=== PATIENT | female | born 1935 | race Caucasian/White ===

== ENCOUNTER 2017-11-18 14:26 | Inpatient (IN) | payer MEDICARE, OTHER ==
[2017-11-18 15:02] LABS: AADO2 Arterial 40.7 mmHg (7.0-24.0); Allen Test ACCEPTAB; Arterial Base Excess 0.4 mmol/L (-3.0-3); Arterial Blood Gas Oxygen Sat 93.6 mmHG (95.0-100.0); Arterial COHb 0.3 % (0.0-3.0); Arterial HCO3 23.5 mmol/L (22.0-26.0); Arterial MetHb 0.3 % (0.0-1.5); Arterial Total Hemglobin 11.5 g/dl (12.0-18.0); Arterial pCO2 33.1 mmhg (35-45); MODE ROOM AIR; Site Right Brachial
[2017-11-18 15:07] LABS: ADD MAN DIFF? NO
[2017-11-18 15:08] LABS: WHITE BLOOD COUNT 4.1 10^3/ul (4.8-10.8)
[2017-11-18 15:08] LABS: BASOPHILS % 0.5 % (0.0-2.0); EOSINOPHILS % 0.2 % (0.0-7.0); HEMATOCRIT 34.6 % (37.0-47.0); LYMPHOCYTES # 0.8 10^3/ul (0.8-2.9); LYMPHOCYTES % 18.2 % (15.0-51.0); MEAN CORPUSCULAR HEMOGLOBIN 28.5 pg (29.0-33.0); MEAN CORPUSCULAR HGB CONC 31.8 g/dl (32.0-37.0); MEAN CORPUSCULAR VOLUME 89.6 fl (82.0-101.0); MEAN PLATELET VOLUME 9.7 fl (7.4-10.4); MONOCYTE # 0.3 10^3/ul (0.3-0.9); MONOCYTES % 6.3 % (0.0-11.0); NEUTROPHIL # 3.1 10^3/ul (1.6-7.5); NEUTROPHILS % 74.3 % (39.0-77.0); PLATELET COUNT 331 10^3/UL (140-415); RED BLOOD COUNT 3.86 10^6/ul (4.20-5.40)
[2017-11-18 15:19] LABS: ADD UMIC YES; UR AMORPHOUS CRYSTAL MANY /HPF (NONE SEEN); UR ASCORBIC ACID NEGATIVE (NEGATIVE); UR BACTERIA FEW /HPF (NONE SEEN); UR BILIRUBIN (Dip) NEGATIVE (NEGATIVE); UR BLOOD (Dip) 2+ mg/dL (NEGATIVE); UR CLARITY CLOUDY (CLEAR); UR COLOR YELLOW (YELLOW); UR GLUCOSE (Dip) NEGATIVE (NEGATIVE); UR KETONES (Dip) TRACE mg/dL (NEGATIVE); UR LEUKOCYTE ESTERASE (Dip) 3+ Leu/ul (NEGATIVE); UR MUCUS FEW /HPF (NONE SEEN); UR NITRITE (Dip) POSITIVE (NEGATIVE); UR RBC 41 /HPF (0-5); UR SPECIFIC GRAVITY (Dip) 1.016 (1.003-1.030); UR TOTAL PROTEIN (Dip) 1+ mg/dl (NEGATIVE); UR UROBILINOGEN (Dip) 2+ mg/dL (NEGATIVE); UR WBC > 182 /HPF (0-5)
[2017-11-18 15:28] LABS: INR 1.13; PROTIME 14.7 Sec (11.9-14.9); PT RATIO 1.1
[2017-11-18 15:29] LABS: PARTIAL THROMBOPLASTIN TIME 32.4 Sec (25.0-35.0)
[2017-11-18 15:38] LABS: ALANINE AMINOTRANSFERASE 15 IU/L (13-69); ALBUMIN 3.8 g/dl (3.3-4.9); ALBUMIN/GLOBULIN RATIO 1.26; ALKALINE PHOSPHATASE 96 IU/L (42-121); AMYLASE 42 U/L (11-123); ANION GAP 16 (8-16); ASPARTATE AMINO TRANSFERASE 25 IU/L (15-46); BILIRUBIN,INDIRECT 0.3 mg/dl (0-1.1); BILIRUBIN,TOTAL 0.3 mg/dl (0.2-1.3); BLOOD UREA NITROGEN 16 mg/dl (7-20); CALCIUM 8.8 mg/dl (8.4-10.2); CARBON DIOXIDE 26 mmol/L (21-31); CHLORIDE 107 mmol/L (97-110); CREATININE 0.54 mg/dl (0.44-1.00); GLUCOSE 158 mg/dl (70-220); LIPASE 24 U/L (23-300); POTASSIUM 3.6 mmol/L (3.5-5.1); SODIUM 145 mmol/L (135-144); TOTAL PROTEIN 6.8 g/dl (6.1-8.1)
[2017-11-18 15:44] LABS: LACTIC ACID 3.8 mmol/L (0.5-2.0)
[2017-11-18 15:49] LABS: B-TYPE NATRIURETIC PEPTIDE 717 PG/ML (0-450)
[2017-11-18 15:50] LABS: TROPONIN-I < 0.012 ng/ml (0.00-0.12)
[2017-11-18] MEDS: VANCOMYCIN 1 GM (PMX) 250 ML IVPB (16:00)
[2017-11-18] MEDS: SODIUM CHLORIDE 0.9% 1L BAG IV* (16:06)
[2017-11-18] MEDS: CEFEPIME 2GM/50 ML (PMX) 50 ML IVPB (16:06)
[2017-11-18] MEDS: LORAZEPAM 2 MG INJ IV (16:28)
[2017-11-18] MEDS ORDERED: ACETAMINOPHEN 325 MG TAB PO ×2 (16:30→18:30)
[2017-11-18] MEDS ORDERED: ONDANSETRON 4 MG INJ IV ×2 (16:30→18:30)
[2017-11-18 16:41] LABS: LACTIC ACID 1.8 mmol/L (0.5-2.0)
[2017-11-18] MEDS ORDERED: BISACODYL (EC) 5 MG TAB PO (18:30)
[2017-11-18] MEDS ORDERED: DOCUSATE SODIUM 100 MG CAP PO (18:30)
[2017-11-18] MEDS ORDERED: morphine 2 MG INJ IV (18:30)
[2017-11-18] MEDS ORDERED: NACL 0.9% 3 ML SYG IV (18:30)
[2017-11-18] MEDS ORDERED: HYDROCODONE/APAP (5/325) TAB PO (18:30)
[2017-11-18] MEDS ORDERED: MAGNESIUM HYDROXIDE 30ML CUP PO (18:30)
[2017-11-18] MEDS: D5W-0.45 NACL + KCL 20 MEQ 1,000 ML IV (18:38)
[2017-11-19] MEDS: CEFTRIAXONE 1 GM/50 ML (PMX) 50 ML IVPB (06:13)
[2017-11-19 07:45] LABS: ADD MAN DIFF? NO
[2017-11-19 07:49] LABS: BASOPHILS % 0.7 % (0.0-2.0); EOSINOPHILS % 0.9 % (0.0-7.0); HEMOGLOBIN 10.2 g/dl (12.0-16.0); LYMPHOCYTES # 1.1 10^3/ul (0.8-2.9); LYMPHOCYTES % 25.7 % (15.0-51.0); MEAN CORPUSCULAR HEMOGLOBIN 29.1 pg (29.0-33.0); MEAN CORPUSCULAR HGB CONC 32.9 g/dl (32.0-37.0); MEAN CORPUSCULAR VOLUME 88.6 fl (82.0-101.0); MEAN PLATELET VOLUME 9.6 fl (7.4-10.4); MONOCYTE # 0.3 10^3/ul (0.3-0.9); MONOCYTES % 7.7 % (0.0-11.0); NEUTROPHIL # 2.8 10^3/ul (1.6-7.5); NEUTROPHILS % 64.8 % (39.0-77.0); PLATELET COUNT 325 10^3/UL (140-415); RED CELL DISTRIBUTION WIDTH 13.2 % (11.5-14.5)
[2017-11-19 07:49] LABS: WHITE BLOOD COUNT 4.3 10^3/ul (4.8-10.8)
[2017-11-19 08:06] LABS: ANION GAP 14 (8-16); BLOOD UREA NITROGEN 9 mg/dl (7-20); CALCIUM 8.3 mg/dl (8.4-10.2); CARBON DIOXIDE 26 mmol/L (21-31); CHLORIDE 106 mmol/L (97-110); CREATININE 0.45 mg/dl (0.44-1.00); GLUCOSE 82 mg/dl (70-220); MAGNESIUM 1.9 mg/dl (1.7-2.5); PHOSPHORUS 3.3 mg/dl (2.5-4.9); POTASSIUM 3.3 mmol/L (3.5-5.1); SODIUM 143 mmol/L (135-144)
[2017-11-19] MEDS: LORAZEPAM 2 MG INJ IV ×2 (10:04→15:37)
[2017-11-19] MEDS: D5W-0.45 NACL + KCL 20 MEQ 1,000 ML IV (11:12)
[2017-11-19] MEDS: POTASSIUM CHLORIDE 100 ML IVPB (16:24)
[2017-11-19] MEDS ORDERED: HALOPERIDOL 5 MG INJ IV (16:30)
[2017-11-19] MEDS: HALOPERIDOL 5 MG INJ IM (17:24)
[2017-11-19] MEDS: LEVETIRACETAM 500 MG (PMX) 100 ML IVPB (18:56)
[2017-11-20] MEDS: D5W-0.45 NACL + KCL 20 MEQ 1,000 ML IV ×3 (03:50→20:30)
[2017-11-20] MEDS: CEFTRIAXONE 1 GM/50 ML (PMX) 50 ML IVPB (06:50)
[2017-11-20] MEDS: LEVETIRACETAM 500 MG (PMX) 100 ML IVPB ×2 (09:26→21:11)
[2017-11-20 09:55] LABS: ADD MAN DIFF? NO
[2017-11-20 09:58] LABS: BASOPHILS % 0.7 % (0.0-2.0); EOSINOPHILS # 0.1 10^3/ul (0.0-0.5); HEMATOCRIT 32.4 % (37.0-47.0); HEMOGLOBIN 10.7 g/dl (12.0-16.0); LYMPHOCYTES # 1.1 10^3/ul (0.8-2.9); LYMPHOCYTES % 36.2 % (15.0-51.0); MEAN CORPUSCULAR HEMOGLOBIN 28.9 pg (29.0-33.0); MEAN CORPUSCULAR VOLUME 87.6 fl (82.0-101.0); MEAN PLATELET VOLUME 9.5 fl (7.4-10.4); MONOCYTE # 0.3 10^3/ul (0.3-0.9); MONOCYTES % 9.5 % (0.0-11.0); NEUTROPHIL # 1.6 10^3/ul (1.6-7.5); NEUTROPHILS % 51.3 % (39.0-77.0); PLATELET COUNT 320 10^3/UL (140-415)
[2017-11-20 10:05] LABS: PHOSPHORUS 3.5 mg/dl (2.5-4.9)
[2017-11-20 10:05] LABS: CHOL/HDL RATIO 7.8 RATIO; CHOLESTEROL 274 mg/dl (100-200); HDL CHOLESTEROL 35 mg/dl (33-92); LDL CHOLESTEROL,CALCULATED 202 mg/dl; TRIGLYCERIDES 184 mg/dl (0-149)
[2017-11-20 10:25] LABS: ALANINE AMINOTRANSFERASE 21 IU/L (13-69); ALBUMIN 2.9 g/dl (3.3-4.9); ALBUMIN/GLOBULIN RATIO 1.11; ALKALINE PHOSPHATASE 77 IU/L (42-121); ANION GAP 8 (8-16); ASPARTATE AMINO TRANSFERASE 20 IU/L (15-46); BILIRUBIN,INDIRECT 0.1 mg/dl (0-1.1); BILIRUBIN,TOTAL 0.1 mg/dl (0.2-1.3); BLOOD UREA NITROGEN 3 mg/dl (7-20); CALCIUM 8.6 mg/dl (8.4-10.2); CARBON DIOXIDE 28 mmol/L (21-31); CHLORIDE 110 mmol/L (97-110); GLUCOSE 93 mg/dl (70-220); POTASSIUM 3.6 mmol/L (3.5-5.1); SODIUM 142 mmol/L (135-144); TOTAL PROTEIN 5.5 g/dl (6.1-8.1)
[2017-11-20 12:01] LABS: FREE T4 (FREE THYROXINE) 1.56 ng/dl (0.85-1.93)
[2017-11-20 12:45] LABS: HEMOGLOBIN A1C 5.1 % (0-5.9)
[2017-11-20] MEDS ORDERED: morphine LIQ (10 MG/5 ML) CUP PO (16:30)
[2017-11-20] MEDS: ZOLPIDEM 5 MG TAB PO (21:11)
[2017-11-20] MEDS: ATORVASTATIN 40 MG TAB PO (21:11)
[2017-11-21] MEDS: D5W-0.45 NACL + KCL 20 MEQ 1,000 ML IV ×2 (06:04→12:25)
[2017-11-21] MEDS: CEFTRIAXONE 1 GM/50 ML (PMX) 50 ML IVPB (06:05)
[2017-11-21] MEDS: FLUOXETINE 20 MG CAP PO (08:39)
[2017-11-21] MEDS: LEVETIRACETAM 500 MG (PMX) 100 ML IVPB (08:39)
[2017-11-21 10:01] LABS: ADD MAN DIFF? NO
[2017-11-21 10:08] LABS: BASOPHILS % 0.5 % (0.0-2.0); EOSINOPHILS % 0.7 % (0.0-7.0); HEMATOCRIT 37.6 % (37.0-47.0); HEMOGLOBIN 12.2 g/dl (12.0-16.0); LYMPHOCYTES # 1.2 10^3/ul (0.8-2.9); LYMPHOCYTES % 30.3 % (15.0-51.0); MEAN CORPUSCULAR HEMOGLOBIN 28.8 pg (29.0-33.0); MEAN CORPUSCULAR HGB CONC 32.4 g/dl (32.0-37.0); MEAN CORPUSCULAR VOLUME 88.7 fl (82.0-101.0); MEAN PLATELET VOLUME 9.3 fl (7.4-10.4); MONOCYTE # 0.3 10^3/ul (0.3-0.9); MONOCYTES % 7.2 % (0.0-11.0); NEUTROPHIL # 2.5 10^3/ul (1.6-7.5); NEUTROPHILS % 61.1 % (39.0-77.0); PLATELET COUNT 341 10^3/UL (140-415); RED BLOOD COUNT 4.24 10^6/ul (4.20-5.40); RED CELL DISTRIBUTION WIDTH 12.9 % (11.5-14.5)
[2017-11-21 10:24] LABS: ANION GAP 16 (8-16); BLOOD UREA NITROGEN 3 mg/dl (7-20); CARBON DIOXIDE 26 mmol/L (21-31); CHLORIDE 106 mmol/L (97-110); CREATININE 0.42 mg/dl (0.44-1.00); GLUCOSE 113 mg/dl (70-220); MAGNESIUM 1.8 mg/dl (1.7-2.5); POTASSIUM 4.3 mmol/L (3.5-5.1); SODIUM 144 mmol/L (135-144)
[2017-11-21 10:24] LABS: PHOSPHORUS 3.9 mg/dl (2.5-4.9)
== END 2017-11-21 18:56 | disposition home or self-care (01) | DRG 871 ==
LOC: E/R 14:26 → MS4 16:29
DX: A41.9 Sepsis, unspecified organism (principal); G93.40 Encephalopathy, unspecified; N39.0 Urinary tract infection, site not specified; I10 Essential (primary) hypertension; R13.10 Dysphagia, unspecified; G30.9 Alzheimer's disease, unspecified; F02.80 Dementia in other diseases classified elsewhere, unspecified severity, without behavioral disturbance, psychotic disturbance, mood disturbance, and anxiety; F32.9 Major depressive disorder, single episode, unspecified; I27.20 Pulmonary hypertension, unspecified; R56.9 Unspecified convulsions
CPT/HCPCS: 36600; 70450; 70551; 71045; 80048; 80053; 80061; 81001; 82150; 82803; 83036; 83605; 83690; 83735; 83880; 84100; 84439; 84443; 84484; 85025; 85610; 85730; 87040; 87086; 92526; 92610; 93005; 93306; 93880; 95819; 96374; 96375; 97110; 97162; 97530; 99291-25